=== PATIENT | male | born 1955 | race Caucasian/White ===

== ENCOUNTER 2025-06-27 05:15 | Emergency (ER) | payer OTHER, SELFPAY ==
--- NOTE | ~2025-06-27 | XR_ITS ---
CLINICAL HISTORY: fall, pain Exam: Lumbar spine three views Comparison: None Findings: 5 [id number] lumbar-type vertebral bodies. Lumbar spine alignment is normal. Anterior wedging compression deformity of the T12 with 30% vertebral height loss, intact posterior cortex, age indeterminate. No acute fracture of the lumbar spine. L4-5, L5-S1 endplate sclerotic changes, osteophytes, moderate to severe disc height loss and facet arthrosis. Unremarkable soft tissue. Clustered subcentimeter mineral densities in the medial right upper quadrant abdomen overlying colon. Impression: 1. T12 anterior wedging compression fracture, age indeterminate. 2. Lower lumbar spine degenerative spondylosis. 3. Cholelithiasis versus bowel contents. This document has been electronically signed by: Sangeeta Jaquez MD on 06/27/2025 08:29:58
--- NOTE | ~2025-06-27 | CT_ITS ---
EXAMINATION: CT HEAD WITHOUT IV CONTRAST HISTORY: Fall. TECHNIQUE: Unenhanced helical CT of the head was performed per standard departmental protocol. Coronal and sagittal reformats of the head were also evaluated. One or more of the following techniques was used for dose reduction: Automated exposure control, adjustment of the mA and/or kV according to patient size, use of iterative reconstruction technique. DLP: 855 mGy-cm COMPARISON: There are no prior studies available for comparison. FINDINGS: BRAIN: There is mild prominence of the ventricular system and cortical sulci, consistent with atrophy. Michel/white differentiation is normal. There is no mass effect or midline shift. No intra- or extra-axial fluid collections are identified. SINUSES: The visualized paranasal sinuses are clear. The mastoid air cells and middle ear cavities are well pneumatized. ORBITS: The visualized orbits are unremarkable. BONES/SOFT TISSUES: The extracranial soft tissues are unremarkable. The calvarium is intact. No suspicious lytic or sclerotic lesions. CT/CT head/brain wo IV con IMPRESSION: No evidence of intracranial hemorrhage. Electronically signed by: Gustabo Adam MD 06/27/2025 10:23 AM LIVE
--- NOTE | ~2025-06-27 | CT_ITS ---
EXAMINATION: CT CERVICAL SPINE WITHOUT CONTRAST CLINICAL INFORMATION: Trauma, fall COMPARISON: None available. TECHNIQUE: Axial imaging was performed from the base of the skull through T2 without IV contrast. Coronal and sagittal reformatted images were generated from the original axial data set. ALARA: The examination used one or more of the following radiation dose reduction techniques: Automated exposure control, iterative reconstruction, and/or adjustment of mA and/or KV. FINDINGS: There is reversal cervical lordosis. C2-C3: Disc spaces preserved. There are facet osteophytes. There is a nonaggressive appearing geographic lucency in the base of the spinous process with sclerotic margins. C3-C4: Disc spaces preserved. There are facet osteophytes C4-C5: There is mild disc space narrowing with endplate osteophytes. There are facet osteophytes. C5-C6: There is grade 1 retrolisthesis. There is moderate to severe loss of disc height. There are uncovertebral and facet osteophytes likely with foraminal narrowing. Right central disc osteophyte complex moderately narrows the spinal canal and subarticular zone C6-7: There is moderate loss disc height with degenerative endplate changes and endplate osteophytes. Facet osteophytes narrow the left greater than right neural foramina. Minimal facet osteophytes are present. C7-T1: There is minimal disc space narrowing and facet osteophytes, greater on the left. CT/CT cervical spine wo IV con IMPRESSION: No acute fracture. 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 Electronically signed by: Dom Contreras MD 06/27/2025 10:25 AM EST
--- NOTE | ~2025-06-27 | CT_ITS ---
EXAMINATION: CT LUMBAR SPINE WITHOUT CONTRAST TECHNIQUE: Axial imaging was performed from mid T11 through the lower sacrum coccygeal region without IV contrast. Coronal and sagittal reformatted images were generated from the original axial data set. ALARA: The examination used one or more of the following radiation dose reduction techniques: Automated exposure control, iterative reconstruction, and/or adjustment of mA and/or kV. INDICATION: Trauma, fall PRIOR: None FINDINGS: Multifocal atherosclerotic ossifications are present. Cluster of coarse calcifications are evident in the soft tissues anterior to IVC in the portacaval region. Soft tissues are unremarkable otherwise. There are 5 [id number] lumbar segments. There is a superior endplate fracture of T12 with approximately 30% loss of height. Additionally, fracture line extends from the anterior superior corner T12 to the inferior endplate of T12 There is lucency through the posterior superior left sacrum with partial bridging bone suggesting subacute fracture (sagittal image 20, axial CT #27 image 106). T12-L1: There is mild loss disc height and minimal facet osteophytes. L1-L2: Facet sclerosis and osteophytes are present. L2-L3: Facet sclerosis and osteophyte is present L3-L4: Facet sclerosis and osteophytes are present L4-L5: There is moderate disc space narrowing with vacuum phenomena and endplate sclerosis L5-S1: There is minimal grade 1 retrolisthesis with severe disc space narrowing and degenerative endplate changes. There is a bridging anterior osteophyte. There is facet sclerosis and osteophytes. CT/CT lumbar spine wo IV con IMPRESSION: Suspected acute T12 fracture with 30% loss of height. Suspect a subacute fracture of the superior left sacrum.. Degenerative disc disease and facet osteoarthritis is most pronounced at L4-5 and L5-S1. Electronically signed by: Dom Contreras MD 06/27/2025 10:35 AM EST
[2025-06-27 05:19] VITALS: BP 197/83; PULSE 68; RESP 20; TEMP 36.3; O2SAT 94; BMI 31.7
--- NOTE | 2025-06-27 05:43 | PC.NURSE ---
pt reports drinking alcohol Thursday night at home with family and he tripped on his walker causing him to fall forward landing on his belly. Pt back began to hurt Thursday with no relief. pt rates pain 02/12. respirations even and unlabored. family at bedside.
--- OUTSIDE RECORDS SUMMARY | 2025-06-27 06:28 | XMS_ITS | Data Portability ---
Author Organization [facility], Main Office Address [address] [place] [address] Care Team Providers Care Ruching Machine Operator Name Role Phone [facility] OTHER WHIT SMITH Primary Care Provider Assessment Encounter Date Assessment Date Assessment LastModified by Organization Details LastModified Time 08/05/2024 08/05/2024 Labs 08/01: Na 131-K 4.5-Bun 27-Cr 1.0-wbc 4.4-hgb 10.3-hct 31.7-plt 279 Not available 08/07/2024 19:14:51 08/08/2024 08/08/2024 Labs 08/01: Na 131-K 4.5-Bun 27-Cr 1.0-wbc 4.4-hgb 10.3-hct 31.7-plt 279 [email or web address] Not available 08/08/2024 14:29:04 08/09/2024 08/09/2024 Labs 08/01: Na 131-K 4.5-Bun 27-Cr 1.0-wbc 4.4-hgb 10.3-hct 31.7-plt 279 [email or web address] Not available 08/20/2024 17:53:17 08/17/2024 08/17/2024 Labs 08/01: Na 131-K 4.5-Bun 27-Cr 1.0-wbc 4.4-hgb 10.3-hct 31.7-plt 279 Labs : Na 131-K 4.2-Bun 14-r0.7-wbc8.1- hgb 11.5-hct25.6-pl t 185 Not available 08/17/2024 20:52:12 08/25/2024 08/25/2024 45 minutes spent on coordination of discharge [email or web address] Not available 08/25/2024 09:46:24 Plan of Treatment Reminders Order Date Submit Date Provider Last Modified By Organization Details Last Modified Time Details Appointments None record ed. Lab None record ed. Referral None record ed. Procedures None record ed. Surgeries None record ed. Imaging None record ed. Medication Orders None record ed. Patient TargetsNo targets recorded. Patient InstructionsNo instructions recorded. Reason for Referral None Reported. Problems Name Problem SNOMED Code Status Onset Date Resolution Date Notes Provider Name and Address Organization Details Recorded Time Atherosc lerosis of coronary artery without angina pectoris 32239081376 4103 Completed 202408/07/2024 GIANNA LOOMIS [address] [facility], [address], [place], [address] , [facility] 5 19:16:03 [facility] hyperten viviana 25465763 Active 2024 Not Available [facility] 5 07:47:45 Hyperlip idemia 93908386 Active 2024 Not Available [facility] 07:47:46 Peripher al vascular disease 359257071 Active 2024 Not Available [facility] 5 07:48:17 Acquired absence of organ 702978131 Completed 202408/07/2024 GIANNA LOOMIS [address] [facility], [address], [place], [address] , [facility] 5 19:16:03 Benign prostati c hyperpla morris 893848080 Active 2024 Not Available [facility] 07:49:35 Chronic osteomye litis 33301102 Active 2024 Not Available [facility] 07:50:16 COVID-19 170266684 Active 2024 positive 08/01 Not Available [facility] 07:52:58 Amputati on educatio n Completed 202408/07/2024 GIANNA LOOMIS [address] [facility], [address], [place], [address] , [facility] 5 19:16:03 Muscle weakness 70484653 Completed 202408/07/2024 GIANNA LOOMIS [address] [facility], [address], [place], [address] , [facility] 5 19:16:03 Unsteady when standing 360942500 Completed 202408/07/2024 GIANNA LOOMIS [address] [facility], [address], [place], [address] , [facility] 5 19:16:03 Difficul ty walking 134634512 Completed 202408/07/2024 GIANNA LOOMIS [address] [facility], [address], [place], [address] , [facility] 5 19:16:03 Harmful pattern of use of alcohol 63377625 Active 2024 Not Available [facility] 5 13:42:35 Cardiac arrest 525355629 Active 2024 Not Available [facility] 13:43:50 Hyponatr emia 67541216 Active 2024 Roselyn Rodriguez MD [address] [facility], [address], [place], [address] , [facility] 5 18:02:19 Problem Notes None recorded. Medical Equipment None Reported. Allergies No known drug allergies Medications Name Sig Start Date Stop Date Status Note LastModified by Organization Details LastModified Time Augmentin 875 mg-125 mg tablet Give 1 tablet by mouth three times a day for Routine until 5 19:24 09/01 completed Not Available Not Available Not Available atorvastati n 20 mg tablet Give 20 mg by mouth one time a day for cholester ol 2024 active Not Available Not Available Not Avai lable tamsulosin 0.4 mg capsule Give 2 capsule by mouth at bedtime for routine Do not crush/james w or open capsule. Take 30 minutes after the same meal each day. May cause dizziness . 2024 active Not Available Not Available Not Avai lable lisinopril 10 mg tablet Give 10 mg by mouth one time a day for Hypertens ion hold if SBP <110, update CIGAR PATCHER if held frequentl y 2024 active Not Available Not Available Not Avai lable Laxative (sennosides ) 8.6 mg tablet Give 1 tablet by mouth every 24 hours as needed for Constipat ion AND Give 1 tablet by mouth two times a day for constipat ion 2024 active Not Available Not Available Not Avai lable finasteride 5 mg tablet Give 5 mg by mouth one time a day for routine 2024 active Not Available Not Available Not Avai lable Stulex 100 mg tablet Give 100 mg by mouth two times a day for Constipat ion 2024 active Not Available Not Available Not Avai lable sodium phosphates 19 gram-7 gram/197 mL enema Insert 1 unit rectally every 24 hours as needed for Constipat ion Use only if Bisacodyl Supposito ry is ineffecti ve 2024 active Not Available Not Available Not Avai lable lactulose 10 gram/15 mL (15 mL) oral solution Give 30 ml by mouth one time only for constipat ion for 1 Day 08/13 completed Not Available Not Available Not Available aspirin 81 mg capsule Give 81 mg by mouth one time a day for routine 2024 active Not Available Not Available Not Avai lable OneLAX Bisacodyl 10 mg rectal suppository Insert 1 supposito ry rectally every 24 hours as needed for constipat ion Use if Senna is Ineffecti ve 2024 active Not Available Not Available Not Avai lable 2-in-1 Laxative 8.6 mg-50 mg tablet Give 17.2 mg by mouth one time only for constipat ion for 1 Day 08/10 completed Not Available Not Available Not Available OneLAX Magnesium Citrate oral solution Give 0.5 vial by mouth one time only for constipat ion for 1 Day ONLY ADMINISTE R IF POOR RESULTS FROM [facility] 08/09 completed Not Available Not Available Not Available Vitals Date Recorded Heart rate Respiratory rate Body temperature Oxygen saturation Systolic And Diastolic Provider Name and Address Organization Details Last Updated DateTime 5 60 /min 18 /min 97.9 [degF] 97 % 115/61 mm[Hg] GIANNA LOOMIS [address] [facility], [address], [place], [address], [facility] 5 19:05:27 Date Recorded Heart rate Respiratory rate Body temperature Oxygen saturation Systolic And Diastolic Provider Name and Address Organization Details Last Updated DateTime 5 53 /min 18 /min 97.7 [degF] 94 % 136/67 mm[Hg] KATHERINE GROVER NP [address] [facility], [address], [place], [address], [facility] 5 14:28:50 Date Recorded Body height Body mass index (BMI) Body weight Heart rate Respiratory rate Body temperature Oxygen saturation Systolic And Diastolic Provider Name and Address Organization Details Last Updated DateTime 5 188.98 cm 26.1 kg/m2 32245.8 7 g 89 /min 22 /min 98.1 [degF] 99 % 145/68 mm[Hg] Roselyn Rodriguez MD [address] [facility], [address], [place], [address], [facility] 5 19:10:09 Date Recorded Body height Heart rate Respiratory rate Body temperature Oxygen saturation Systolic And Diastolic Provider Name and Address Organization Details Last Updated DateTime 5 188.98 cm 56 /min 18 /min 98 [degF] 96 % 120/61 mm[Hg] GIANNA LOOMIS [address] [facility], [address], [place], [address], [facility] 5 19:52:37 Date Recorded Body height Heart rate Respiratory rate Body temperature Oxygen saturation Systolic And Diastolic Provider Name and Address Organization Details Last Updated DateTime 5 188.98 cm 57 /min 18 /min 97.8 [degF] 99 % 129/57 mm[Hg] KATHERINE GROVER NP [address] [facility], [address], [place], [address], [facility] 09:18:56 Social History Question Answer Notes LastModified by Organizat ion Details LastModified Time Tobacco Smoking Status Former Smoker quit 2022 Roselyn Rodriguez MD [address] [place] [address], [address], [place], [address], [facility] 08/09/2024 19:19:48 Do You Have An Advance Directive? Yes Information not available 08/09/2024 What Is Your Code Status? DNR/DNI [id number] Information not available 08/08/2024 Where Do You Live? SingleLevelHouse Alone, With 3 Steps To Enter. Information not available 08/09/2024 Legal Guardian? No Informati on not available 08/09/2024 Do You Have A Medical Power Of Ticketing Clerk? Yes Information not available 08/09/2024 What Was The Date Of Your Most Recent Tobacco Screening? 08/09/2024 Information not available 08/09/2024 Do You Have An Out Of Hospital DNR? Yes [email or web address] Information not available 08/08/2024 Have You Ever Been Counseled For Unhealthy Alcohol Use? Yes Information not available 08/09/2024 What Is Your Relationship Status? Information not available 08/09/2024 How Much Tobacco Do You Smoke? No Information not available 08/09/2024 Has Tobacco Cessation Counseling Been Provided? No N/a As Pt No Longer Smokes Information not available 08/09/2024 How Many Days In The Past Year Have You Consumed 5 Or More Drinks? 340 Information not available 08/09/2024 Sex: Unknown Functional Status Question Answer Note LastModified by Organizat ion Details LastModified Time How many times per week do you consume alcohol? 5-7 times per week 6-8 beers/day, not interested in quitting. Information not available 08/20/2024 Do you or have you ever used any other forms of tobacco or nicotine? No Information not available 08/09/2024 What is your level of alcohol consumption? Heavy Information not available 08/09/2024 Mental Status None recorded. Family History Nothing Reported Notes:n/c Medical History No medical history recorded. Past Encounters Encounter ID Performer Location Encounter Start Date Encounter Closed Date Diagnosis/Indication Diagnosis SNOMED-CT Code Diagnosis ICD10 Code Diagnosis IMO Codes Diagnosis Note [id number] [place] [address] 08/05/2024 10:46:13 08/12/2024 16:04:46 COVID-19 584240351 U07.1 Patient was mainly asymptomat icAsymptom atic, previous myalgia and fatigue has resolved per patientHe did not receive any steroids due to hypoxemia, not sure how lowcont support therapy. Peripheral vascular disease 403449487 I73.9 with hx of necrosis of toes and osteomyeli tisrecent transmetat arsal amputation of right foot 07/20/24was wearing a wound vac/ eval by vascular/n o sx of infection/ wound vac removed. Chronic osteomyelitis 40 574288 M86.60 continue lipitor ( statin use associated with decrease re-occurre nce)cont asa dailycont augmentin 875 mg TID until 08/31/24sta rted probiotic BIDcont Vit C Benign pro static hyperplasia 641968792 N40.[address] due to retentionw ill need voiding trial, dubon has dulce in place greater than 2 weeks, he should have had voiding trial done prior to last admission to hosp.cont flomax and proscar daily Hyperlipidemia 60021944 E78.5 cont atorvastat inmonitor labs prn Essential hypertension 26772006 I10 cont lisinopril monitor BP Constipation 38757676 K5 9.00 He has been refusing miralaxagr ee to taking a stool softenerco nt on senna and colaceincr ease fluid hydration [id number] [place] [address] 08/08/2024 12:14:43 08/09/2024 12:31:25 COVID-19 514835855 U07.1 Mild sx., now resolving. Tested pos. in hosp.Jaocby nues in isolation. Feeling better, less cough and congestion .Monitor Peripheral vascular disease 821692432 I73.9 with hx of necrosis of toes and osteomyeli tisrecent transmetat arsal amputation of right foot 07/20/24.Fo llowed by Vascular, NS wash and DCD daily to [facility] site.Jacoby nues on Augmentin thru 08/31.CBC, BMP q Thurs while on antibiotic sFollow up with Vascular as sched. Chronic osteomyelitis 40 651925 M86.60 continue lipitor ( statin use associated with decrease re-occurre nce)cont asa dailycont augmentin 875 mg TID until 08/31/24sta rted probiotic BIDcont Vit CAdding weekly labs as above. Benign pro static hyperplasia 297673307 N40.[address] due to retentionw ill need voiding trial, dubon has been in place greater than 2 weeks, he should have had voiding trial done prior to last admission to hosp.Plan -cont flomax and proscar dailyRemov e dubon 08/11, PVR q shift, cath if >350 ml.Pt wants to make sure bowels are moving prior to removing cath. Hyperlipidemia 18386249 E78.5 cont atorvastat inmonitor labs prn Essential hypertension 84169848 I10 cont lisinopril monitor BP Constipation 03773006 K5 9.00 Reported to be refusing miralax earlier.Cu rrently on colace.Pt. reports no BM in 10 days.No results with supp. Plan -Fleets today, 1/2 bottle mag citrate if poor results.En c. use of daily miralaxAdd senna-plus 2 po dailyMaint ain hydrationE ncourage fiber and activityMo nitor and continue to adjust tx. Hyponatremia 76732575 E8 7.1 ? Newer issueCurre nt levels 131 -> 129MAR reviewed, not on obvious meds to contribute to low NaRepeat q dayCo nsider fluid restrictio n [id number] Roselyn Rodriguez MD [facility] [address] [place] [address] 08/09/2024 19:03:23 08/22/2024 12:40:59 COVID-19 124461227 U07.1 Tested + 08/01Now considered recovered. Continues with mild cough, tx sxatically .Monitor for sequelae. Hyponatremia 16892302 E8 7.1 On no meds that should cause this.Initi ally would have attributed to EtOH ingestion, but that should have resolved by now.Remain s mild.No FR for now.Monito r labs.Consi surinder renal consult. Constipation 51704402 K5 9.89 No actual constipati on.He has had results with fleets and has soft stool in vault.I reassured him that he could push if needed.Con tinue bowel meds as ordered.Mo nitor bowel function. Peripheral vascular disease 659999979 I73.89 Continue atorvastat in 20 mg qd and ASA 81 mg Vd.F/U with vascualr as planned. Chronic osteomyelitis 40 245061 M86.60 Z89.421 Z89.411 Continue augmentin 875 mg TID until 08/31/24Con tinue probiotic BIDContinu e Vit C 250 mg qd to help with healing.Mo nitor labs weekly.F/U with surgeon and ID as planned. Benign pro static hyperplasia 337383108 N40.0 With retention inpt.Pt refused voiding trial due to constipat ion .Jacoby nue tamsulosin 0.4 mg vd and finasterid e 5 mg qd.Will try voiding trial again on 08/11.Uro consult prn. Essential hypertension 28549076 I10 With 2 borderline SBPs since here, but generally good.Jacoby nue lisinopril 10 mg qdMonitor BP and labs. [id number] RONY ARMAS, INVOICE CLERK [facility] [address] [place] [address] 08/17/2024 13:38:21 08/18/2024 14:02:48 COVID-19 486302397 U07.1 presumed resolvedhe has been without sxcont support therapy prn Peripheral vascular disease 445518114 I73.9 with hx of necrosis of toes and osteomyeli tisrecent transmetat arsal amputation of right foot 07/20/24was wearing a wound vac/ eval by vascular/n o sx of infection/ wound vac removed.He had f/u with vasc on 08/16 awaiting cnsult report, nursing ask to obtain. Chronic osteomyelitis 40 236496 M86.60 continue lipitor ( statin use associated with decrease re-occurre nce)cont asa dailycont augmentin 875 mg TID until 08/31/24con tinue probiotic BIDcont Vit C Benign pro static hyperplasia 575371459 N40.0 dubon removed, voiding but PVR >400flomax increased to 0.8 mg qdreplace dubon for 3 consecutiv e pvr requiring str cath Hyperlipidemia 79652747 E78.5 cont atorvastat inmonitor labs prn Essential hypertension 59166454 I10 cont lisinopril monitor BP Constipation 25658669 K5 9.00 see hpirefusin g stool softener [id number] KATHERINE GROVER, CIGAR PATCHER [facility] [address] [place] [address] 08/25/2024 09:07:20 08/26/2024 11:18:20 COVID-19 373174225 U07.1 Tested + 08/01Now considered recovered. Monitor for sequelae. Hyponatremia 58471254 E8 7.1 On no meds that should cause this.Initi ally would have attributed to EtOH ingestion, but that should have resolved by now.Remain s mild.No FR for now.Monito r labs as outpt.Cons ider renal consult. Constipation 82852030 K5 9.89 No actual constipati on.Continu e laxativesM onitor bowel function as outpt. Chronic osteomyelitis 40 544078 M86.60 Z89.421 Z89.411 Continue augmentin 875 mg TID until 08/31/24Con tinue probiotic BIDContinu e Vit C 250 mg qd to help with healing.Mo nitor labs weekly.F/U with surgeon and ID as planned. Peripheral vascular disease 853936502 I73.89 Continue atorvastat in 20 mg qd and ASA 81 mg Vd.F/U with vascular as planned. Benign pro static hyperplasia 247600599 N40.0 Failed voiding trialsTams ulosin increased to 0.8 mg qd last week, continues on finasterid e 5 mg qd.Dubon removed yesterday, PVRs x 3 -> 2 readings ok, 1 elevated, cathed for 400 ml urine.S/S retention discussed with pt., educated he must notify his PCP or VNA nurse if having trouble voiding, having reduced output, or is noticing bladder distention or sx. of full bladder.Ur o consult prn. Essential hypertension 15794962 I10 VSSContinu e lisinopril 10 mg qdMonitor BP and labs as outpt. Hyperlipidemia 71172412 E78.5 cont atorvastat in 20 mg qdmonitor labs prn Health Concerns Section Related Observation LastModified by Organization Detai ls LastModified Time None Recorded Concern Status LastModified by Organization Details LastModified Time None Recorded Advance Directives Directive Y: Payers Insurance Date Sequence Insurance Name Policy Number Policy Lewis Covered Member ID Lewis Member ID Guarantor Name 08/25/[address] [place] [address] [id number] Piotr Dubon [id number] Piotr Dubon Notes Date Note Type Note Provider Name and Address Organization Details Recorded Time 08/05/2024 text/html ROS as noted in the HPI This is a 69-year-old male patient with PMH of coronary artery disease complicated by previous cardiac arrest, hypertension, hyperlipidemia, and a necrotic right foot infection resulting in sepsis and amputation of all 5 digits on the right foot, admitted to [facility] after acute care stay, he presented to [facility] from snf with generalized weakness, he was dx with covid and tx conservatively. Patient was cleared to returned to SNF but he refused and asked to be placed in a different SNF. Patient is seen for initial intake for continued care and rehab. RONY ARMAS, GIANNA [address] [facility], [address], [place], [address], [facility] 08/09/2024 17:58:43 08/08/2024 text/html ROS as noted in the HPI Joshua is seen today for an acute visit. He is a 69-year-old male, admitted to [facility] for continued care and rehab after a brief hosp. due to COVID infection. He was sent to [facility] ER 08/01 from another SNF due to fever, weakness, and headache. Appears tx. was supportive, and he was cleared to return to SNF. He refused transfer back to his previous SNF and asked to be placed at a different facility, so he is here. Upon exam, Joshua is in bed, feels poor. Specifically he is complaining of constipation, hasn't had a substantial BM in 10 days and he is very uncomfortable. He is also requesting a regular, not heart healthy diet.MAR reviewed, currently on daily miralax and colace. VSS.Labs 08/05 stable except Na 129. Prior labs show low Na as well as low D and low B 12.Pt. unaware of any hx. of hypokalemia. Per nsg., he has had 2 lrg. BMs recently. PMH of coronary artery disease complicated by previous cardiac arrest, hypertension, hyperlipidemia, and a necrotic right foot infection resulting in sepsis and amputation of all 5 digits on the right foot KATHERINE GROVER NP [address] [facility], [address], [place], [address], [facility] 08/08/2024 15:05:29 08/09/2024 text/html This is a complicated 69 yo man who is here for rehab after an acute hospitalization for Covid. He hadoriginally been hospitalized 07/15-07/28 for a right foot infection with osteomyelitis an sepsis, now s/p a right TMA, details as below:Group A streptococcus bacteremiaSepsis due to Right foot infection(L08.9): fever + leukocytosisNecrosis of toe(I96)withosteomyeli tis s/p Rt foot TMA by Dr Marcano 07/20/24Peripheral vascular disease Status post left femoropopliteal bypass graft and left transmetatarsal amputation CAD in [place] artery(I25.10):H/o PAD and multiple vascular procedures including L fem-pop bypass(2015),R fem-pop bypass(2015), L TMA (2015), debridement L foot (2019) R2 amputation (2023).Chronic right foot wound presented to ER with a chief complaint of worsening wound found to have diabetic R foot infection with necrosis.Labs: Leukocytosis, ESR 83 and CRP 49CTA of lower extremity was done that showed patent graftS/p R1, R# ray amputation POD 4.07/15: 1/2 Blood cx: +Streptococcus pyogenes07/16: Ortissue cultures are growing Proteus mirabilis and streptococcus pyogenes07/17: Repeat blood cultures -ve for 48 hr07/18:ECHo: EF is 55 to 60%. No evidence of vegetation.07/20- s/p Rt TMA, f/u pathology reveals acute osteomyelitic changesID consult reviewedPer ID-StartAugmentin 875mg PO TID (to avoid line placement) - till 08/31 treating for residual osteo.-Should have CBC with diff, CMP, ESR, CRP in about 2 weeks and every 2-3 weeks after this.- ID will arrange outpatient follow up- Follow up with PCP in 1-2 weeks- Follow up with vascular surgeryPer Wound care/vascular-Continue ASA, Atorvastatin*RLE NWB x 6 weeks post R TMSeen by vascular on 07/27/[address] to the right TMA. Clear adhesive and sponge taken down. Healthy pink granulation tissue to the wound base with healthy granulation tissue over etelvina. Skin prep wipes used around open end of TMA with skin prep along the stapled incision. Use clear adhesive around incision and wound edge medially. Cut black sponge to fit medial open TMA, pack into wound. cover all exposed skin surrounding with clear adhesive. Do not cover etelvina along the incision with clear adhesive. Use black sponge cut to fit along incision to bridge with medial open area and cover with clear adhesive. Cut small opening for tessie pad and attach to vac. Good seal at -125mmHg without leak alarm noted at end of vac change. This is to be changed every Thu//Thu. Next change due Thursday, 07/29. He was d/c'd to [facility].Transferred back to [facility] on 08/01 because of low grade temp and not feeling himself .Found to be + for Covid. He has a dubon in place for urinary retention.He was txed sxatically and not given steroids or antivirals as he had no hypoxia.He wastransferred here for further rehab on 08/04. Tonight he is in bed awake. He tells me his biggest problem is not being able to poop . I tell him the nursing notes say he did poop. He says there is a hard piece there that won't come out. He also tells me he is afraid to push too hard because of the etelvina in his foot. I reassure him that straining should not affect the etelvina in his foot. He tells me the surgeon had said it would when he had previous surgeries. He had a KUB done which showed no sig constipation and nursing says he has been having BMs. His PMH includes HTN, CAD with hx of VF arrest/non-ST elevation AL s/p PCI to LAD in 2016, PVD s/p multiple revascularization attempts, osteomyelitis s/p L TMA in 2015 and R TMA 07/2024, HLD, AUD-not interested in quitting, and hx of cigarette smoking. Roselyn Rodriguez MD [address] [facility], [address], [place], [address], [facility] 08/20/2024 18:16:58 08/17/2024 text/html ROS as noted in the HPI This is a 69 yr old male patient seen for acute rounding visit. Patient is here for rehab after acute care stay for covid, previously at another SNF s/p Rt TMA with refusal to returned to previous snf. He arrived from hospital with dubon catheter in place due to urinary retention;he refused voiding trial; patient was on a bowel regimen, He initially stated that he was going to refuse stool softener and miralax but he agreed to colace. He has been refusing senna, stating he is not taking it, he has a problem with bowel movement. Now he is reporting that he has not had a BM in ten days and FC is causing constipation. 08/15: he requested FC to be removed 08/16:dubon removed, pt spontaneously voided with PVR > than 400, requiring additional straight cath. GIANNA LOOMIS [address] [facility], [address], [place], [address], [facility] 08/17/2024 20:52:36 08/25/2024 text/html ROS as noted in the HPI Joshua is seen today for discharge.He is going home today with support of services. He is a 69 yo man who was admitted to [facility] for continued care and rehab after an acute hospitalization for Covid. He hadoriginally been hospitalized 07/15-07/28 for a right foot infection with osteomyelitis and sepsis, now s/p a right TMA, details as below:Group A streptococcus bacteremiaSepsis due to Right foot infection(L08.9): fever + leukocytosisNecrosis of toe(I96)withosteomyeli tis s/p Rt foot TMA by Dr Marcano 07/20/24Peripheral vascular disease Status post left femoropopliteal bypass graft and left transmetatarsal amputation CAD in [place] artery(I25.10):H/o PAD and multiple vascular procedures including L fem-pop bypass(2015),R fem-pop bypass(2015), L TMA (2015), debridement L foot (2019) R2 amputation (2023).Chronic right foot wound presented to ER with a chief complaint of worsening wound found to have diabetic R foot infection with necrosis.Labs: Leukocytosis, ESR 83 and CRP 49CTA of lower extremity was done that showed patent graftS/p R1, R# ray amputation POD 4.07/15: 1/ Blood cx: +Streptococcus pyogenes07/16: Ortissue cultures are growing Proteus mirabilis and streptococcus pyogenes07/17: Repeat blood cultures -ve for 48 hr07/18:ECHo: EF is 55 to 60%. No evidence of vegetation.07/20- s/p Rt TMA, f/u pathology reveals acute osteomyelitic changesID consult reviewedPer ID-StartAugmentin 875mg PO TID (to avoid line placement) - till 08/31 treating for residual osteo.-Should have CBC with diff, CMP, ESR, CRP in about 2 weeks and every 2-3 weeks after this.- ID will arrange outpatient follow up- Follow up with PCP in 1-2 weeks- Follow up with vascular surgeryPer Wound care/vascular-Continue ASA, Atorvastatin*RLE NWB x 6 weeks post R TMSeen by vascular on 07/27/[address] to the right TMA. Clear adhesive and sponge taken down. Healthy pink granulation tissue to the wound base with healthy granulation tissue over etelvina. Skin prep wipes used around open end of TMA with skin prep along the stapled incision. Use clear adhesive around incision and wound edge medially. Cut black sponge to fit medial open TMA, pack into wound. cover all exposed skin surrounding with clear adhesive. Do not cover etelvina along the incision with clear adhesive. Use black sponge cut to fit along incision to bridge with medial open area and cover with clear adhesive. Cut small opening for tessie pad and attach to vac. Good seal at -125mmHg without leak alarm noted at end of vac change. This is to be changed every Thu//Thu. Next change due Thursday, 07/29. He was d/c'd to [facility].Transferred back to [facility] on 08/01 because of low grade temp and not feeling himself .Found to be + for Covid. He has a dubon in place for urinary retention.He was txed sxatically and not given steroids or antivirals as he had no hypoxia.He wastransferred here for further rehab on 08/04. While here, he has worked with rehab, meeting goals for d/c home today.VSSLabs stable. Issues with constipation - laxatives adjusted. KUB done which showed no sig constipation and nursing says he has been having BMs. Last documented BM large on 08/22. Issues with urinary retention - failed voiding trial here, flomax dose increased last week, attempting another voiding trial - dubon removed yesterday, PVRs good x 2, the 3rd PVR this am showed high residual, cathed for 400 mg urine. Pt. verbalized to the nurse he is not going home with a catheter, and if he does he will remove it himself when he gets home. Continues with wound care to right foot, area stable/improving. Continue tx = cleanse open area to right TMA sight with NS, apply skin prep to periphery, Calcium Alginate lightly activated with normal saline to wound bed, apply betadine to superficial ulcers, cover with DCD. Upon exam, Joshua is up in his w/c, alert, NAD. In good spirits, happy to be going home. Denies any complaints today. His PMH includes HTN, CAD with hx of VF arrest/non-ST elevation AL s/p PCI to LAD in 2016, PVD s/p multiple revascularization attempts, osteomyelitis s/p L TMA in 2015 and R TMA 07/2024, HLD, AUD-not interested in quitting, and hx of cigarette smoking. KATHERINE GROVER NP [address] [facility], [address], [place], [address], [facility] 08/25/2024 10:15:25
--- OUTSIDE RECORDS SUMMARY | 2025-06-27 06:28 | XMS_ITS | Clinical Summary ---
Author Organization [address] [facility] Address [address] [place] [address] Phone Care Team Providers Care Consultant Electronics Name Role Phone Tahmina Joe MD Primary Care Provider Social History Tobacco Use Types Packs/Day Years Used Date Smoking Tobacco: Never Assessed Sex and Gender Information Value Date Recorded Sex Assigned at Not on file Legal Sex Male 5:10 PM EST Gender Identity Not on file Sexual Orientation Not on file Plan of Treatment Health Maintenance Due Date Last Done Comments Colorectal Cancer Screening: Colonoscopy 1955 Hepatitis A Vaccines (1 of 2 - Risk 2-dose series) 01/30/1976 Pneumococcal Vaccine: 50+ Years (1 of 1 - PCV) 2007 RSV Immunization Adult Patients (1 - Risk 50-74 years 1-dose series) 2007 Zoster Vaccines (1 of 2) 2007 Depression Screening 07/06/2024 Abdominal Aortic Aneurysm (AAA) Screen 07/30/2024 Falls Risk Assessment 07/30/2024 Hepatitis C Screening 07/30/2024 Social Influencers of Health Screening 07/30/2024 COVID-19 Vaccine (3 - 2024- season) 2025 11/04/2020, 10/06/2020 Influenza Vaccine (#1) 2025 Hypertension/CHF/CAD Annual BMP Blood Test 08/25/2025 08/25/2024, 08/18/2024, 08/11/2024, Additional history exists Cholesterol Screening (Lipid Panel) 07/29/2029 07/29/2024 DTaP,Tdap,and Td Vaccines (3 - Td or Tdap) 02/05/2033 02/05/2023, 02/02/2015 HIB Vaccines Aged Out No longer eligi ble based on patient's age to complete this topic HPV Vaccines Aged Out No longer eligi ble based on patient's age to complete this topic Hepatitis B Vaccines Aged Out No long er eligible based on patient's age to complete this topic IPV Vaccines Aged Out No longer eligi ble based on patient's age to complete this topic MMR Vaccines Aged Out No longer eligi ble based on patient's age to complete this topic Meningococcal ACWY Vaccine Aged Out N o longer eligible based on patient's age to complete this topic Meningococcal B Vaccine Aged Out No l onger eligible based on patient's age to complete this topic RSV Immunization Patients Under 20 months Aged Out No longer eligible based on patient's age to complete this topic Varicella Vaccines Aged Out No longer eligible based on patient's age to complete this topic Procedures Procedure Name Priority Date/Time Associated Diagnosis Comments BASIC METABOLIC PANEL Routine 08/25/2024 5:19 AM EST Hyperlipidemia, unspecified Peripheral vascular disease, unspecified (CMS/HCC) LIPID PANEL WITH REFLEX TO DIRECT LDL Routine 07/29/2024 6:08 AM EST Vitamin D deficiency, unspecified Gangrene, not elsewhere classified (CMS/HCC) Hyperlipidemia, unspecified Sepsis, unspecified organism (CMS/HCC) Local infection of the skin and subcutaneous tissue, unspecified from Last 3 Months or Most Recently Relevant to Health Maintenance Results * (ABNORMAL) Basic metabolic panel (08/25/2024 5:19 AM EST) Sodium 137 133 - 145 mmol/L LAB CHEMISTRY METHOD 08/25/2024 11:12 AM [facility] Potassium 4.7 3.5 - 5.5 mmol/L LAB CHEMISTRY METHOD 08/25/2024 11:12 AM [facility] Chloride 102 96 - 110 mmol/L LAB CHEMISTRY METHOD 08/25/2024 11:12 AM [facility] CO2 24 21 - 32 mmol/L LAB CHEMISTRY METHOD 08/25/2024 11:12 AM [facility] Anion Gap 11 3 - 11 LAB CHEMISTRY METHOD 08/25/2024 11:12 AM [facility] Glucose 85 70 - 100 mg/dL LAB CHEMISTRY METHOD 08/25/2024 11:12 AM [facility] BUN 15 5 - 25 mg/dL LAB CHEMISTRY METHOD 08/25/2024 11:12 AM [facility] Creatinine 0.69(L) 0.70 - 1.30 mg/dL LAB CHEMISTRY METHOD 08/25/2024 11:12 AM [facility] eGFR 101 >=60 mL/min/1. 73m2 LAB CHEMISTRY METHOD 08/25/2024 11:12 AM [facility] Comment:Calculation based on the Chronic Kidney Disease Epidemiology Collaboration (CKD-EPI) equation refit without adjustment for race. BUN/Creatinine Ratio 21.7 LAB CHEMISTRY METHOD 08/25/2024 11:12 AM [facility] Calcium 8.8 8.5 - 10.5 mg/dL LAB CHEMISTRY METHOD 08/25/2024 11:12 AM [facility] Blood Venous blood specimen / Unknown Venipuncture / Unknown 08/25/2024 5:19 AM EST 08/25/2024 10:32 AM EST us Phil Sands MD LAB BLOOD ORDERABLES Final Resul t [facility] [address] [place] [address], * (ABNORMAL) Lipid panel with reflex to direct LDL (07/29/2024 6:08 AM EST) Cholesterol 160 0 - 200 mg/dL LAB CHEMISTRY METHOD 07/29/2024 12:12 PM [facility] Triglycerides 192(H) 0 - 150 mg/dL LAB CHEMISTRY METHOD 07/29/2024 12:12 PM [facility] HDL 30(L) >=40 mg/dL LAB CHEMISTRY METHOD 07/29/2024 12:12 PM [facility] LDL Calculated 92 0 - 100 mg/dL LAB CHEMISTRY METHOD 07/29/2024 12:12 PM EST [facility] VLDL Cholesterol Tanner 38.4 mg/dL LAB CHEMISTRY METHOD 07/29/2024 12:12 PM EST [facility] Non HDL Chol. (LDL+VLDL) 130 <145 mg/dL LAB CHEMISTRY METHOD 07/29/2024 12:12 PM [facility] Chol/HDL Ratio 5.3(H) 0.0 - 4.4 LAB CHEMISTRY METHOD 07/29/2024 12:12 PM EST [facility] Blood Venous blood specimen / Unknown Venipuncture / Unknown 07/29/2024 6:08 AM EST 07/29/2024 10:03 AM EST aThmina Joe MD LAB BLOOD ORDERABLES Final Resul t [facility]) [facility] [address] [place] [address], from Last 3 Months or Most Recently Relevant to Health Maintenance Insurance MEDICARE [facility] [place] [id number] Care Teams Consultant Electronics Relationship Specialty Start Date End Date Tahmina Joe MD PCP - General Geriatric Medicine 07/29/24
--- OUTSIDE RECORDS SUMMARY | 2025-06-27 06:28 | XMS_ITS | Encounter Summary ---
Author Organization [employer] Address [address] [place] [address] Care Team Providers Care Athletic Team Physician Name Role Phone Tahmina Joe MD Primary Care Provider [phone] Encounter Details Date Type Department Care Team (Late st Contact Info) Description 08/24/[address] [facility] - Main Lab [address] [place] [address] Phil Sands MD [address] [place] [address] [address] [place], [address] Hyperlipidemia, unspecified; Peripheral vascular disease, unspecified (CMS/HCC V24) Social History Tobacco Use Types Packs/Day Years Used Date Smoking Tobacco: Never Assessed Sex and Gender Information Value Date Recorded Sex Assigned at Not on file Legal Sex Male 5:10 PM EST Gender Identity Not on file Sexual Orientation Not on file documented as of this encounter Plan of Treatment Not on file documented as of this encounter Procedures Procedure Name Priority Date/Time Associated Diagnosis Comments COMPLETE BLOOD COUNT Routine 08/25/2024 5:19 AM EST Hyperlipidemia, unspecified Peripheral vascular disease, unspecified (CMS/HCC) BASIC METABOLIC PANEL Routine 08/25/2024 5:19 AM EST Hyperlipidemia, unspecified Peripheral vascular disease, unspecified (CMS/HCC) documented in this encounter Results * (ABNORMAL) Basic metabolic panel (08/25/2024 5:19 AM EST) Sodium 137 133 - 145 mmol/L LAB CHEMISTRY METHOD 08/25/2024 11:12 AM EST [facility] Potassium 4.7 3.5 - 5.5 mmol/L LAB CHEMISTRY METHOD 08/25/2024 11:12 AM [facility] Chloride 102 96 - 110 mmol/L LAB CHEMISTRY METHOD 08/25/2024 11:12 AM [facility] CO2 24 21 - 32 mmol/L LAB CHEMISTRY METHOD 08/25/2024 11:12 AM [facility] Anion Gap 11 3 - 11 LAB CHEMISTRY METHOD 08/25/2024 11:12 AM [facility] Glucose 85 70 - 100 mg/dL LAB CHEMISTRY METHOD 08/25/2024 11:12 AM [facility] BUN 15 5 - 25 mg/dL LAB CHEMISTRY METHOD 08/25/2024 11:12 AM [facility] Creatinine 0.69(L) 0.70 - 1.30 mg/dL LAB CHEMISTRY METHOD 08/25/2024 11:12 AM [facility] eGFR 101 >=60 mL/min/1. 73m2 LAB CHEMISTRY METHOD 08/25/2024 11:12 AM [facility] Comment:Calculation based on the Chronic Kidney Disease Epidemiology Collaboration (CKD-EPI) equation refit without adjustment for race. BUN/Creatinine Ratio 21.7 LAB CHEMISTRY METHOD 08/25/2024 11:12 AM [facility] Calcium 8.8 8.5 - 10.5 mg/dL LAB CHEMISTRY METHOD 08/25/2024 11:12 AM [facility] Blood Venous blood specimen / Unknown Venipuncture / Unknown 08/25/2024 5:19 AM EST 08/25/2024 10:32 AM EST us Phil Sands MD LAB BLOOD ORDERABLES Final Resul t [facility] [address] [place] [address], [place] [phone] * (ABNORMAL) Complete blood count (08/25/2024 5:19 AM EST) WBC 7.8 4.8 - 10.8 K/mcL LAB HEMETOLOGY METHOD 08/25/2024 10:58 AM [facility] RBC 3.70(L) 4.50 - 5.50 [facility] HEMETOLOGY METHOD 08/25/2024 10:58 AM [facility] Hemoglobin 10.9(L) 13.5 - 17.5 g/dL LAB HEMETOLOGY METHOD 08/25/2024 10:58 AM [facility] Hematocrit 34.7(L) 42.0 - 54.0 % LAB HEMETOLOGY METHOD 08/25/2024 10:58 AM [facility] MCV 93.5 79.0 - 98.0 FL LAB HEMETOLOGY METHOD 08/25/2024 10:58 AM [facility] MCH 29.4 27.0 - 32.0 pcg LAB HEMETOLOGY METHOD 08/25/2024 10:58 AM [facility] MCHC 31.4(L) 32.0 - 37.0 g/dL LAB HEMETOLOGY METHOD 08/25/2024 10:58 AM [facility] RDW 14.6 11.0 - 15.0 % LAB HEMETOLOGY METHOD 08/25/2024 10:58 AM [facility] Platelets 269 130 - 400 K[facility] LAB HEMETOLOGY METHOD 08/25/2024 10:58 AM [facility] MPV 11.0 7.0 - 11.0 FL LAB HEMETOLOGY METHOD 08/25/2024 10:58 AM [facility] NRBC 0.0 <1.0 % LAB HEMETOLOGY METHOD 08/25/2024 10:58 AM [facility] NRBC Absolute 0.00 <0.10 [facility] LAB HEMETOLOGY METHOD 08/25/2024 10:58 AM EST [facility] Blood Venous blood specimen / Unknown Venipuncture / Unknown 08/25/2024 5:19 AM EST 08/25/2024 10:32 AM EST us Phil Sands MD LAB BLOOD ORDERABLES Final Resul t [facility] ([facility]) [facility] [address] [place] [address], documented in this encounter Visit Diagnoses Diagnosis Hyperlipidemia, unspecified Peripheral vascular disease, unspecified (CMS/HCC V24) Peripheral vascular disease, unspecified documented in this encounter Care Teams Athletic Team Physician Relationship Specialty Start Date End Date Tahmina Joe MD PCP - General Geriatric Medicine 07/29/24 documented as of this encounter
--- OUTSIDE RECORDS SUMMARY | 2025-06-27 06:28 | XMS_ITS | Encounter Summary ---
Author Organization [facility] Address [address] [place] [address] Care Team Providers Care Wound Care Specialist Name Role Phone Tahmina Joe MD Primary Care Provider [phone] Encounter Details Date Type Department Care Team (Late st Contact Info) Description 08/31/[address] [facility] Lab [address] [facility] [place] [address] Phil Sands MD [address] [place] [address] [address] [place], [address] Hyperlipidemia, unspecified; Peripheral vascular disease, unspecified [...] on file documented as of this encounter Visit Diagnoses Diagnosis Hyperlipidemia, unspecified Peripheral vascular disease, unspecified (CMS/HCC V24) Peripheral vascular disease, unspecified documented in this encounter Care Teams Wound Care Specialist Relationship Specialty Start Date End Date Tahmina Joe MD PCP - General Geriatric Medicine 07/29/24 documented as of this encounter
--- OUTSIDE RECORDS SUMMARY | 2025-06-27 06:28 | XMS_ITS | Encounter Summary ---
Author Organization [employer] Address [address] [place] [address] Care Team Providers Care Hand Cutter Name Role Phone Tahmina Joe MD Primary Care Provider [phone] Encounter Details Date Type Department Care Team (Late st Contact Info) Description 08/10/2024 Lab Requisition [facility] - Main Lab [address] [place] [address] Phil Sands MD [address] [place] [address] [address] [place], [address] Peripheral vascular disease, unspecified (CMS/HCC V24); Hyperlipidemia, unspecified Social History Tobacco Use Types Packs/Day Years [...] Associated Diagnosis Comments COMPLETE BLOOD COUNT Routine 08/11/2024 5:22 AM EST Peripheral vascular disease, unspecified (CMS/HCC) Hyperlipidemia, unspecified BASIC METABOLIC PANEL Routine 08/11/2024 5:22 AM EST Peripheral vascular disease, unspecified (CMS/HCC) Hyperlipidemia, unspecified documented in this encounter Results * (ABNORMAL) Basic metabolic panel (08/11/2024 5:22 AM EST) Sodium 131(L) 133 - 145 mmol/L LAB CHEMISTRY METHOD 08/11/2024 11:27 AM EST [facility] Potassium 4.2 3.5 - 5.5 mmol/L LAB CHEMISTRY METHOD 08/11/2024 11:27 AM [facility] Chloride 97 96 - 110 mmol/L LAB CHEMISTRY METHOD 08/11/2024 11:27 AM [facility] CO2 26 21 - 32 mmol/L LAB CHEMISTRY METHOD 08/11/2024 11:27 AM [facility] Anion Gap 8 3 - 11 LAB CHEMISTRY METHOD 08/11/2024 11:27 AM [facility] Glucose 81 70 - 100 mg/dL LAB CHEMISTRY METHOD 08/11/2024 11:27 AM [facility] BUN 14 5 - 25 mg/dL LAB CHEMISTRY METHOD 08/11/2024 11:27 AM [facility] Creatinine 0.71 0.70 - 1.30 mg/dL LAB CHEMISTRY METHOD 08/11/2024 11:27 AM [facility] eGFR 101 >=60 mL/min/1. 73m2 LAB CHEMISTRY METHOD 08/11/2024 11:27 AM [facility] Comment:Calculation based on the Chronic Kidney Disease Epidemiology Collaboration (CKD-EPI) equation refit without adjustment for race. BUN/Creatinine Ratio 19.7 LAB CHEMISTRY METHOD 08/11/2024 11:27 AM [facility] Calcium 8.7 8.5 - 10.5 mg/dL LAB CHEMISTRY METHOD 08/11/2024 11:27 AM [facility] Blood Venous blood specimen / Unknown Venipuncture / Unknown 08/11/2024 5:22 AM EST 08/11/2024 9:37 AM EST us Phil Sands MD LAB BLOOD ORDERABLES Final Resul t [facility] [address] [place] [address], [place] [phone] * (ABNORMAL) Complete blood count (08/11/2024 5:22 AM EST) WBC 8.1 4.8 - 10.8 K/mcL LAB HEMETOLOGY METHOD 08/11/2024 11:18 AM [facility] RBC 4.00(L) 4.50 - 5.50 M/mcL LAB HEMETOLOGY METHOD 08/11/2024 11:18 AM [facility] Hemoglobin 11.5(L) 13.5 - 17.5 g/dL LAB HEMETOLOGY METHOD 08/11/2024 11:18 AM [facility] Hematocrit 35.6(L) 42.0 - 54.0 % LAB HEMETOLOGY METHOD 08/11/2024 11:18 AM [facility] MCV 88.6 79.0 - 98.0 FL LAB HEMETOLOGY METHOD 08/11/2024 11:18 AM [facility] MCH 28.6 27.0 - 32.0 pcg LAB HEMETOLOGY METHOD 08/11/2024 11:18 AM [facility] MCHC 32.3 32.0 - 37.0 g/dL LAB HEMETOLOGY METHOD 08/11/2024 11:18 AM [facility] RDW 14.6 11.0 - 15.0 % LAB HEMETOLOGY METHOD 08/11/2024 11:18 AM [facility] Platelets 185 130 - 400 K/mcL LAB HEMETOLOGY METHOD 08/11/2024 11:18 AM [facility] MPV 11.9(H) 7.0 - 11.0 FL LAB HEMETOLOGY METHOD 08/11/2024 11:18 AM [facility] NRBC 0.0 <1.0 % LAB HEMETOLOGY METHOD 08/11/2024 11:18 AM [facility] NRBC Absolute 0.00 <0.10 K/mcL LAB HEMETOLOGY METHOD 08/11/2024 11:18 AM EST [facility] Blood Venous blood specimen / Unknown Venipuncture / Unknown 08/11/2024 5:22 AM EST 08/11/2024 9:37 AM EST us Phil Sands MD LAB BLOOD ORDERABLES Final Resul t [facility] ([facility]) [facility] [address] [place] [address], documented in this encounter Visit Diagnoses Diagnosis Peripheral vascular disease, unspecified (CMS/HCC V24) Peripheral vascular disease, unspecified Hyperlipidemia, unspecified documented in this encounter Care Teams Hand Cutter Relationship Specialty Start Date End Date Tahmina Joe MD PCP - General Geriatric Medicine 07/29/24 documented as of this encounter
--- OUTSIDE RECORDS SUMMARY | 2025-06-27 06:28 | XMS_ITS | Encounter Summary ---
Author Organization [facility] Address [address] [place] [address] Care Team Providers Care Section Gang Worker Name Role Phone Tahmina Joe MD Primary Care Provider [phone] Encounter Details Date Type Department Care Team (Late st Contact Info) Description 08/17/2024 Lab Requisition [facility] - Main Lab [address] [place] [address] Phil Sands MD [address] [place] [address] [address] [place], [address] Hyperlipidemia, unspecified; Peripheral vascular disease, unspecified [...] Associated Diagnosis Comments COMPLETE BLOOD COUNT Routine 08/18/2024 9:00 AM EST Hyperlipidemia, unspecified Peripheral vascular disease, unspecified (CMS/HCC) BASIC METABOLIC PANEL Routine 08/18/2024 9:00 AM EST Hyperlipidemia, unspecified Peripheral vascular disease, unspecified (CMS/HCC) documented in this encounter Results * (ABNORMAL) Basic metabolic panel (08/18/2024 9:00 AM EST) Sodium 132(L) 133 - 145 mmol/L LAB CHEMISTRY METHOD 08/18/2024 11:26 AM EST [facility] Potassium 4.4 3.5 - 5.5 mmol/L LAB CHEMISTRY METHOD 08/18/2024 11:26 AM [facility] Chloride 103 96 - 110 mmol/L LAB CHEMISTRY METHOD 08/18/2024 11:26 AM [facility] CO2 23 21 - 32 mmol/L LAB CHEMISTRY METHOD 08/18/2024 11:26 AM [facility] Anion Gap 6 3 - 11 LAB CHEMISTRY METHOD 08/18/2024 11:26 AM [facility] Glucose 106(H) 70 - 100 mg/dL LAB CHEMISTRY METHOD 08/18/2024 11:26 AM [facility] BUN 16 5 - 25 mg/dL LAB CHEMISTRY METHOD 08/18/2024 11:26 AM [facility] Creatinine 0.87 0.70 - 1.30 mg/dL LAB CHEMISTRY METHOD 08/18/2024 11:26 AM [facility] eGFR 95 >=60 mL/min/1. 73m2 LAB CHEMISTRY METHOD 08/18/2024 11:26 AM [facility] Comment:Calculation based on the Chronic Kidney Disease Epidemiology Collaboration (CKD-EPI) equation refit without adjustment for race. BUN/Creatinine Ratio 18.4 LAB CHEMISTRY METHOD 08/18/2024 11:26 AM [facility] Calcium 8.9 8.5 - 10.5 mg/dL LAB CHEMISTRY METHOD 08/18/2024 11:26 AM [facility] Blood Venous blood specimen / Unknown Venipuncture / Unknown 08/18/2024 9:00 AM EST 08/18/2024 10:55 AM EST us Phil Sands MD LAB BLOOD ORDERABLES Final Resul t [facility] [address] [place] [address], * (ABNORMAL) Complete blood count (08/18/2024 9:00 AM EST) WBC 8.5 4.8 - 10.8 K/mcL LAB HEMETOLOGY METHOD 08/18/2024 11:15 AM [facility] RBC 4.00(L) 4.50 - 5.50 M/mcL LAB HEMETOLOGY METHOD 08/18/2024 11:15 AM [facility] Hemoglobin 11.5(L) 13.5 - 17.5 g/dL LAB HEMETOLOGY METHOD 08/18/2024 11:15 AM [facility] Hematocrit 36.4(L) 42.0 - 54.0 % LAB HEMETOLOGY METHOD 08/18/2024 11:15 AM [facility] MCV 90.8 79.0 - 98.0 FL LAB HEMETOLOGY METHOD 08/18/2024 11:15 AM [facility] MCH 28.7 27.0 - 32.0 pcg LAB HEMETOLOGY METHOD 08/18/2024 11:15 AM [facility] MCHC 31.6(L) 32.0 - 37.0 g/dL LAB HEMETOLOGY METHOD 08/18/2024 11:15 AM [facility] RDW 14.5 11.0 - 15.0 % LAB HEMETOLOGY METHOD 08/18/2024 11:15 AM [facility] Platelets 303 130 - 400 K/mcL LAB HEMETOLOGY METHOD 08/18/2024 11:15 AM [facility] MPV 10.9 7.0 - 11.0 FL LAB HEMETOLOGY METHOD 08/18/2024 11:15 AM [facility] NRBC 0.0 <1.0 % LAB HEMETOLOGY METHOD 08/18/2024 11:15 AM [facility] NRBC Absolute 0.00 <0.10 K/mcL LAB HEMETOLOGY METHOD 08/18/2024 11:15 AM [facility] Blood Venous blood specimen / Unknown Venipuncture / Unknown 08/18/2024 9:00 AM EST 08/18/2024 10:55 AM EST us Phil Sands MD LAB BLOOD ORDERABLES Final Resul t [facility] [address] [place] [address], documented in this encounter Visit Diagnoses Diagnosis Hyperlipidemia, unspecified Peripheral vascular disease, unspecified (CMS/HCC V24) Peripheral vascular disease, unspecified documented in this encounter Care Teams Section Gang Worker Relationship Specialty Start Date End Date Tahmina Joe MD PCP - General Geriatric Medicine 07/29/24 documented as of this encounter
--- OUTSIDE RECORDS SUMMARY | 2025-06-27 06:28 | XMS_ITS | Encounter Summary ---
Author Organization [facility] Address [address] [place] [address] Care Team Providers Care Medical Radiation Therapist Name Role Phone Tahmina Joe MD Primary Care Provider Encounter Details Date Type Department Care Team (Late st Contact Info) Description 07/29/2024 Lab Requisition [facility] - Main Lab [address] [facility] [place] [address] Tahmina Joe MD [address] [place] [address] Vitamin D deficiency, unspecified; Gangrene, not elsewhere classified (CMS/HCC V24, CMS/HCC V28); Hyperlipidemia, unspecified; Sepsis, unspecified organism (CMS/HCC V24, CMS/HCC V28); Local infection of the skin and subcutaneous tissue, unspecified Social History Tobacco Use Types Packs/Day [...] Procedure Name Priority Date/Time Associated Diagnosis Comments LIPID PANEL WITH REFLEX TO DIRECT LDL Routine 07/29/2024 6:08 AM EST Vitamin D deficiency, unspecified Gangrene, not elsewhere classified (CMS/HCC) Hyperlipidemia, unspecified Sepsis, unspecified organism (CMS/HCC) Local infection of the skin and subcutaneous tissue, unspecified VITAMIN D 25 HYDROXY Routine 07/29/2024 6:08 AM EST Vitamin D deficiency, unspecified Gangrene, not elsewhere classified (CMS/HCC) Hyperlipidemia, unspecified Sepsis, unspecified organism (CMS/HCC) Local infection of the skin and subcutaneous tissue, unspecified COMPLETE BLOOD COUNT Routine 07/29/2024 6:08 AM EST Vitamin D deficiency, unspecified Gangrene, not elsewhere classified (CMS/HCC) Hyperlipidemia, unspecified Sepsis, unspecified organism (CMS/HCC) Local infection of the skin and subcutaneous tissue, unspecified HEMOGLOBIN A1C Routine 07/29/2024 6:08 AM EST Vitamin D deficiency, unspecified Gangrene, not elsewhere classified (CMS/HCC) Hyperlipidemia, unspecified Sepsis, unspecified organism (CMS/HCC) Local infection of the skin and subcutaneous tissue, unspecified FOLATE Routine 07/29/2024 6:08 AM EST Vitamin D deficiency, unspecified Gangrene, not elsewhere classified (CMS/HCC) Hyperlipidemia, unspecified Sepsis, unspecified organism (CMS/HCC) Local infection of the skin and subcutaneous tissue, unspecified VITAMIN B12 Routine 07/29/2024 6:08 AM EST Vitamin D deficiency, unspecified Gangrene, not elsewhere classified (CMS/HCC) Hyperlipidemia, unspecified Sepsis, unspecified organism (CMS/HCC) Local infection of the skin and subcutaneous tissue, unspecified COMPREHENSIVE METABOLIC PANEL Routine 07/29/2024 6:08 AM EST Vitamin D deficiency, unspecified Gangrene, not elsewhere classified (CMS/HCC) Hyperlipidemia, unspecified Sepsis, unspecified organism (CMS/HCC) Local infection of the skin and subcutaneous tissue, unspecified documented in this encounter Results * Hemoglobin A1c (07/29/2024 6:08 AM EST) Hemoglobin A1C 5.4 <6.5 % LAB CHEMISTRY METHOD 07/29/2024 2:20 PM EST [facility] Mean Bld Glu Estim. 108 mg/dL LAB CHEMISTRY METHOD 07/29/2024 2:20 PM EST [facility] Blood Venous blood specimen / Unknown Venipuncture / Unknown 07/29/2024 6:08 AM EST 07/29/2024 10:03 AM EST us Tahmina Joe MD LAB BLOOD ORDERABLES Final Resul t Performing Organization Address City/[facility]/ZIP Co de Phone Number [facility] [address] [place] [address], [place] [phone] * (ABNORMAL) Vitamin D 25 hydroxy (07/29/2024 6:08 AM EST) [facility] Vit D, 25-Hydroxy 12.7(L) 30.0 - 80.0 ng/mL LAB CHEMISTRY METHOD 07/29/2024 11:55 AM EST [facility] Blood Venous blood specimen / Unknown Venipuncture / Unknown 07/29/2024 6:08 AM EST 07/29/2024 10:03 AM EST us Tahmina Joe MD LAB BLOOD ORDERABLES Final Resul t Performing Organization Address [facility]/ZIP Co de Phone Number [facility] [address] [place] [address], [place] [phone] * Folate (07/29/2024 6:08 AM EST) [facility] Folate 9.1 2.8 - 17.0 ng/ml LAB CHEMISTRY METHOD 07/29/2024 12:12 PM EST [facility] Blood Venous blood specimen / Unknown Venipuncture / Unknown 07/29/2024 6:08 AM EST 07/29/2024 10:03 AM EST us Tahmina Joe MD LAB BLOOD ORDERABLES Final Resul t Performing Organization Address City/[facility]/ZIP Co de Phone Number [facility] [address] [place] [address], [place] [phone] * (ABNORMAL) Vitamin B12 (07/29/2024 6:08 AM EST) [facility] Vitamin B-12 185(L) 250 - 900 pcg/mL LAB CHEMISTRY METHOD 07/29/2024 12:16 PM [facility] Blood Venous blood specimen / Unknown Venipuncture / Unknown 07/29/2024 6:08 AM EST 07/29/2024 10:03 AM EST us Tahmina Joe MD LAB BLOOD ORDERABLES Final Resul t Performing Organization Address [facility]/ZIP Co de Phone Number [facility] [address] [place] [address], [place] [phone] * (ABNORMAL) Lipid panel with reflex to direct LDL (07/29/2024 6:08 AM EST) Cholesterol 160 0 - 200 mg/dL LAB CHEMISTRY METHOD 07/29/2024 12:12 PM [facility] Triglycerides 192(H) 0 - 150 mg/dL LAB CHEMISTRY METHOD 07/29/2024 12:12 PM [facility] HDL 30(L) >=40 mg/dL LAB CHEMISTRY METHOD 07/29/2024 12:12 PM [facility] LDL Calculated 92 0 - 100 mg/dL LAB CHEMISTRY METHOD 07/29/2024 12:12 PM [facility] VLDL Cholesterol Tanner 38.4 mg/dL LAB CHEMISTRY METHOD 07/29/2024 12:12 PM [facility] Non HDL Chol. (LDL+VLDL) 130 <145 mg/dL LAB CHEMISTRY METHOD 07/29/2024 12:12 PM [facility] Chol/HDL Ratio 5.3(H) 0.0 - 4.4 LAB CHEMISTRY METHOD 07/29/2024 12:12 PM [facility] Blood Venous blood specimen / Unknown Venipuncture / Unknown 07/29/2024 6:08 AM EST 07/29/2024 10:03 AM EST us Tahmina Joe MD LAB BLOOD ORDERABLES Final Resul t [facility] [address] [place] [address], * (ABNORMAL) Comprehensive metabolic panel (07/29/2024 6:08 AM EST) Sodium 131(L) 133 - 145 mmol/L LAB CHEMISTRY METHOD 07/29/2024 12:12 PM EST [facility] Potassium 4.6 3.5 - 5.5 mmol/L LAB CHEMISTRY METHOD 07/29/2024 12:12 PM [facility] Chloride 102 96 - 110 mmol/L LAB CHEMISTRY METHOD 07/29/2024 12:12 PM [facility] CO2 25 21 - 32 mmol/L LAB CHEMISTRY METHOD 07/29/2024 12:12 PM [facility] Anion Gap 4 3 - 11 LAB CHEMISTRY METHOD 07/29/2024 12:12 PM [facility] Glucose 83 70 - 100 mg/dL LAB CHEMISTRY METHOD 07/29/2024 12:12 PM [facility] BUN 25 5 - 25 mg/dL LAB CHEMISTRY METHOD 07/29/2024 12:12 PM [facility] Creatinine 0.97 0.70 - 1.30 mg/dL LAB CHEMISTRY METHOD 07/29/2024 12:12 PM [facility] eGFR 86 >=60 mL/min/1. 73m2 LAB CHEMISTRY METHOD 07/29/2024 12:12 PM [facility] Comment:Calculation based on the Chronic Kidney Disease Epidemiology Collaboration (CKD-EPI) equation refit without adjustment for race. BUN/Creatinine Ratio 25.8 LAB CHEMISTRY METHOD 07/29/2024 12:12 PM [facility] Calcium 8.8 8.5 - 10.5 mg/dL LAB CHEMISTRY METHOD 07/29/2024 12:12 PM [facility] AST (SGOT) 22 10 - 42 unit/L LAB CHEMISTRY METHOD 07/29/2024 12:12 PM [facility] ALT (SGPT) 28 10 - 60 unit/L LAB CHEMISTRY METHOD 07/29/2024 12:12 PM [facility] Alkaline Phosphatase 91 42 - 121 unit/L LAB CHEMISTRY METHOD 07/29/2024 12:12 PM [facility] Total Protein 8.1(H) 6.0 - 8.0 g/dL LAB CHEMISTRY METHOD 07/29/2024 12:12 PM [facility] Albumin 3.3 3.2 - 5.0 g/dL LAB CHEMISTRY METHOD 07/29/2024 12:12 PM [facility] Total Bilirubin 0.5 0.0 - 1.4 mg/dL LAB CHEMISTRY METHOD 07/29/2024 12:12 PM [facility] Blood Venous blood specimen / Unknown Venipuncture / Unknown 07/29/2024 6:08 AM EST 07/29/2024 10:03 AM EST us Tahmina Joe MD LAB BLOOD ORDERABLES Final Resul t [facility] [address] [place] [address], [place] [phone] * (ABNORMAL) Complete blood count (07/29/2024 6:08 AM EST) WBC 7.8 4.8 - 10.8 K/mcL LAB HEMETOLOGY METHOD 07/29/2024 11:17 AM [facility] RBC 3.90(L) 4.50 - 5.50 M/mcL LAB HEMETOLOGY METHOD 07/29/2024 11:17 AM [facility] Hemoglobin 11.0(L) 13.5 - 17.5 g/dL LAB HEMETOLOGY METHOD 07/29/2024 11:17 AM [facility] Hematocrit 35.7(L) 42.0 - 54.0 % LAB HEMETOLOGY METHOD 07/29/2024 11:17 AM [facility] MCV 92.7 79.0 - 98.0 FL LAB HEMETOLOGY METHOD 07/29/2024 11:17 AM [facility] MCH 28.6 27.0 - 32.0 pcg LAB HEMETOLOGY METHOD 07/29/2024 11:17 AM [facility] MCHC 30.8(L) 32.0 - 37.0 g/dL LAB HEMETOLOGY METHOD 07/29/2024 11:17 AM [facility] RDW 15.0 11.0 - 15.0 % LAB HEMETOLOGY METHOD 07/29/2024 11:17 AM [facility] Platelets 470(H) 130 - 400 K/mcL LAB HEMETOLOGY METHOD 07/29/2024 11:17 AM [facility] MPV 10.8 7.0 - 11.0 FL LAB HEMETOLOGY METHOD 07/29/2024 11:17 AM [facility] NRBC 0.0 <1.0 % LAB HEMETOLOGY METHOD 07/29/2024 11:17 AM [facility] NRBC Absolute 0.00 <0.10 K/mcL LAB HEMETOLOGY METHOD 07/29/2024 11:17 AM [facility] Blood Venous blood specimen / Unknown Venipuncture / Unknown 07/29/2024 6:08 AM EST 07/29/2024 10:03 AM EST us Tahmina Joe MD LAB BLOOD ORDERABLES Final Resul t [facility] [address] [place] [address], documented in this encounter Visit Diagnoses Diagnosis Vitamin D deficiency, unspecified Gangrene, not elsewhere classified (CMS/HCC V24, CMS/[facility] V28) Hyperlipidemia, unspecified Sepsis, unspecified organism ([facility] V24, [facility] V28) Local infection of the skin and subcutaneous tissue, unspecified documented in this encounter Care Teams Medical Radiation Therapist Relationship Specialty Start Date End Date Tahmina Joe MD PCP - General Geriatric Medicine 07/29/24 documented as of this encounter
--- OUTSIDE RECORDS SUMMARY | 2025-06-27 06:28 | XMS_ITS | Encounter Summary ---
Author Organization [email or web address] Address [address] [place] [address] Care Team Providers Care Summer Law Associate Name Role Phone Tahmina Joe MD Primary Care Provider [phone] Encounter Details Date Type Department Care Team (Late st Contact Info) Description 08/05/[address] [facility] - Main Lab [address] [place] [address] Phil Sands MD [address] [place] [address] [address] [place], [address] COVID-19 Social History Tobacco Use Types Packs/Day Years [...] Associated Diagnosis Comments COMPLETE BLOOD COUNT Routine 08/05/2024 5:32 AM EST COVID-19 COMPREHENSIVE METABOLIC PANEL Routine 08/05/2024 5:32 AM EST COVID-19 documented in this encounter Results * (ABNORMAL) Comprehensive metabolic panel (08/05/2024 5:32 AM EST) Sodium 129(L) 133 - 145 mmol/L LAB CHEMISTRY METHOD 08/05/2024 11:28 AM EST [facility] Potassium 4.2 3.5 - 5.5 mmol/L LAB CHEMISTRY METHOD 08/05/2024 11:28 AM EST [facility] Chloride 97 96 - 110 mmol/L LAB CHEMISTRY METHOD 08/05/2024 11:[address] [facility] CO2 23 21 - 32 mmol/L LAB CHEMISTRY METHOD 08/05/2024 11:[address] [facility] Anion Gap 9 3 - 11 LAB CHEMISTRY METHOD 08/05/2024 11:[address] [facility] Glucose 88 70 - 100 mg/dL LAB CHEMISTRY METHOD 08/05/2024 11:[address] [facility] BUN 20 5 - 25 mg/dL LAB CHEMISTRY METHOD 08/05/2024 11:[address] [facility] Creatinine 0.81 0.70 - 1.30 mg/dL LAB CHEMISTRY METHOD 08/05/2024 11:[address] [facility] eGFR 97 >=60 mL/min/1. 73m2 LAB CHEMISTRY METHOD 08/05/2024 11:[address] [facility] Comment:Calculation based on the Chronic Kidney Disease Epidemiology Collaboration (CKD-EPI) equation refit without adjustment for race. BUN/Creatinine Ratio 24.7 LAB CHEMISTRY METHOD 08/05/2024 11:[address] [facility] Calcium 8.3(L) 8.5 - 10.5 mg/dL LAB CHEMISTRY METHOD 08/05/2024 11:[address] [facility] AST (SGOT) 28 10 - 42 unit/L LAB CHEMISTRY METHOD 08/05/2024 11:[address] [facility] ALT (SGPT) 27 10 - 60 unit/L LAB CHEMISTRY METHOD 08/05/2024 11:[address] [facility] Alkaline Phosphatase 88 42 - 121 unit/L LAB CHEMISTRY METHOD 08/05/2024 11:[address] [facility] Total Protein 7.2 6.0 - 8.0 g/dL LAB CHEMISTRY METHOD 08/05/2024 11:[address] [facility] Albumin 3.1(L) 3.2 - 5.0 g/dL LAB CHEMISTRY METHOD 08/05/2024 11:[address] [facility] Total Bilirubin 0.4 0.0 - 1.4 mg/dL LAB CHEMISTRY METHOD 08/05/2024 11:[address] [facility] Blood Venous blood specimen / Unknown Venipuncture / Unknown 08/05/2024 5:32 AM EST 08/05/2024 9:44 AM EST us Phil Sands MD LAB BLOOD ORDERABLES Final Resul t [facility] [address] [place] [address], [place] [phone] * (ABNORMAL) Complete blood count (08/05/2024 5:32 AM EST) WBC 4.6(L) 4.8 - 10.8 K/mcL LAB HEMETOLOGY METHOD 08/05/2024 10:[address] [facility] RBC 3.70(L) 4.50 - 5.50 M/mcL LAB HEMETOLOGY METHOD 08/05/2024 10:[address] [facility] Hemoglobin 10.8(L) 13.5 - 17.5 g/dL LAB HEMETOLOGY METHOD 08/05/2024 10:[address] [facility] Hematocrit 33.0(L) 42.0 - 54.0 % LAB HEMETOLOGY METHOD 08/05/2024 10:[address] [facility] MCV 88.7 79.0 - 98.0 FL LAB HEMETOLOGY METHOD 08/05/2024 10:[address] [facility] MCH 29.0 27.0 - 32.0 pcg LAB HEMETOLOGY METHOD 08/05/2024 10:[address] [facility] MCHC 32.7 32.0 - 37.0 g/dL LAB HEMETOLOGY METHOD 08/05/2024 10:48 AM EST [facility] RDW 14.7 11.0 - 15.0 % LAB HEMETOLOGY METHOD 08/05/2024 10:48 AM EST [facility] Platelets 243 130 - 400 K/mcL LAB HEMETOLOGY METHOD 08/05/2024 10:[address] [facility] MPV 11.7(H) 7.0 - 11.0 FL LAB HEMETOLOGY METHOD 08/05/2024 10:48 AM EST [facility] NRBC 0.0 <1.0 % LAB HEMETOLOGY METHOD 08/05/2024 10:48 AM EST [facility] NRBC Absolute 0.00 <0.10 K/mcL LAB HEMETOLOGY METHOD 08/05/2024 10:[address] [facility] Blood Venous blood specimen / Unknown Venipuncture / Unknown 08/05/2024 5:32 AM EST 08/05/2024 9:44 AM EST us Phil Sands MD LAB BLOOD ORDERABLES Final Resul t [facility] [address] [place] [address], documented in this encounter Visit Diagnoses Diagnosis COVID-19 documented in this encounter Care Teams Summer Law Associate Relationship Specialty Start Date End Date Tahmina Joe MD PCP - General Geriatric Medicine 07/29/24 documented as of this encounter
[2025-06-27 07:15] VITALS: BP 176/65; PULSE 60; RESP 18; TEMP 36.6; O2SAT 94
--- NOTE | 2025-06-27 07:59 | PC.NURSE ---
Assumed care of patient at 0700. Patient aox4, states he fell on Thursday night d/t ETOH use that night and started having back pain Thursday. Denies head strike. Awaiting on lumbar xray. VSS.No needs at this time.
--- NOTE | 2025-06-27 08:07 | ED_ITS ---
HPI - Back Pain/Injury General Chief Complaint: Back Pain/Injury Stated Complaint: Back Pain Time Seen by Provider: 06/27/25 07:50 History of Present Illness ED Provider: Nohemi Jackson NP HPI Narrative: 70-year-old male medical history significant for hypertension, hyperlipidemia, gait instability baseline ambulatory with walker, daily alcohol use and dependence presents to the ED for evaluation reporting a mechanical fall that occurred about 2 days ago. Patient reports that he was drinking alcohol, believes he may have had too much to drink , and subsequently was walking to his bed in his home on a carpet with his rolling walker when it slid out from underneath him. Patient reports that he then landed on his bilateral knees, which are not hurting him. However, he did land on his abdomen, and reports having some lower back pain. No urinary complaints, no dysuria, hematuria, urgency or frequency. No chest pain or pressure, shortness of breath, difficulty with breathing. Patient reports that he did strike his head on the carpet, but did not lose consciousness. Denies midline neck pain. Related Data Previous Rx's ?Medication ?Instructions ?Recorded acetaminophen 500 mg tablet 1,000 mg (2 x 500 mg) PO Q 8H PRN 06/27/25 fever or pain 7 days #30 tabs lidocaine 5 % topical patch 1 patch topical DAILY 7 da ys #15 ea 06/27/25 (Lidoderm) methocarbamol 500 mg tablet 1,000 mg (2 x 500 mg) PO Q ID PRN 06/27/25 spasms 5 days #28 tabs oxycodone 5 mg tablet 5 mg PO Q8H PRN pain 5 days #10 06/27/25 tabs Allergies Allergy/AdvReac Type Severity Reaction Status Date / Time No Known Allergies Allergy Verified 06/27/25 05:23 Review of Systems Review of Systems: ROS is otherwise negative unless mentioned in HPI. [facility] Social History Social History Advance Directives: No Advance Directives Information Provided: Yes Physical Exam Exam: Exam: Nursing notes and vital signs reviewed. Constitutional: Well-appearing, NAD. Alert. Oriented X3. Eyes: EOMI. ENT: Pharynx normal. Neck: Normal inspection. Neck supple. CVS: Normal heart rate and rhythm. Pulses normal. Respiratory: No respiratory distress. Breath sounds normal. Abdomen: Soft, nontender, nondistended. No CVA tenderness bilaterally. Skin: Skin warm and dry. Normal skin color. Extremities: No lower extremity edema. Moves all extremities. Back: Tenderness to palpation of the bilateral lower back. Negative SLRT. Neuro: Oriented X 3. No motor deficit. Vital Signs: Vital Signs: Last Vital Signs Temp 98.2 F 06/27/25 10:47 Pulse 68 06/27/25 12:20 Resp 18 06/27/25 12:20 BP 164/81 H 06/27/25 12:20 Pulse Ox 97 06/27/25 12:20 O2 Del Method Room Air 06/27/25 12:20 BMI result Body Mass Index 31.7 Medications Administered Discontinued Medications Generic Name Dose Route Start Last Admin Trade Name Freq PRN Reason Stop Dose Admin Acetaminophen 975 mg 06/27/25 10:56 06/27/25 11:07 Acetaminophen 325 Mg Tablet PO 06/27/25 10:57 975 mg ONCE ONE Administration Lidocaine 1 patch 06/27/25 10:56 06/27/25 11:07 Lidocaine 4 % Patch Adh..Patch TRANSDERMA 06/27/25 10:57 1 patch ONCE ONE Administration Protocol Methocarbamol 750 mg 06/27/25 10:56 06/27/25 11:06 Methocarbamol 750 Mg Tablet PO 06/27/25 10:57 750 mg ONCE ONE Administration Oxycodone HCl 5 mg 06/27/25 10:56 06/27/25 11:06 Oxycodone Hcl Immed Release 5 Mg Tablet PO 06/27/25 10:57 5 mg ONCE ONE Administration Medical Decision Making Medical Decision Making MDM Narrative: This is a well-appearing 70-year-old male coming for evaluation of a fall. He has no tenderness to palpation of the midline lumbar spine, though does have discomfort to palpation of the bilateral sides of the lumbar spine. Straight leg raise test is negative bilaterally. Reports he did strike his head but did not lose consciousness. Otherwise abdominal exam is benign, alert and oriented, answering all questions appropriately. Denies urinary complaints. Plan for CT of the head, cervical spine, lumbar spine as well as urinalysis testing and reassessment. At home he has taken a marijuana gummie for sleep. Used 1x dose of Aleve with mild effect. 10:45 AM--CT show evidence of a suspected acute T12 fracture with 30% loss of height, and a suspected subacute fracture of the superior left sacrum. He has no neurological deficits. 2+ patellar DTRs. He is ambulatory with his walker. He reports sitting is the most uncomfortable. Plan to administer a dose of Robaxin, oxycodone, Tylenol, and a Lidoderm patch and reassess. He is ambulatory independently, does not want to go to rehab. 12:45 PM-- Urinalysis here shows no signs of infection. He is ambulatory in the hallway independently after pain meds. Reports feeling significantly better. P mirella to discharge home with Robaxin, oxycodone and Tylenol, pain patches. I offered him overnight stay for case management, PT evaluation however at this time he feels pain is well controlled and would like to proceed with discharge plan. There is no indication for admission. We will proceed with discharge. His friend is here to pick him up. Differential Diagnosis Differential Diagnoses: The differential diagnosis associated with the presentation includes lumbar sprain or strain, muscle ache, spinal compression fracture, hematuria, kidney injury, intracranial hemorrhage, cervical fracture/malalignment Admission/Observation Consideration of admission/observation: Escalation of care including admission/observation considered (Not indicated) Lab Data MDM Lab Attestation statement: I reviewed the patient's lab results. (Urinalysis with no signs of infection) Labs: Lab Results 06/27/25 Range/Units 12:22 Urine Color Dark Yellow Urine Appearance Clear Urine pH 7.5 (5.0-9.0) Ur Specific [place] 1.020 (1.005-1.025) Urine Protein 30 (1+) H (Neg-Trace) mg/dL Urine Glucose (UA) Negative (Negative) mg/dL Urine Ketones 15 (Negative) mg/dL Urine Blood Negative (Negative) Urine Nitrite Negative (Negative) Ur Leukocyte Esterase Trace H (Negative) Urine RBC 0-2 (0-2) /HPF Urine WBC 0-5 (0-5) /HPF Ur Squamous Epith Cells 0-2 (0-2) /HPF Urine Bacteria None Seen (None Seen) Hyaline Casts 0-2 (0-2) /LPF Independent Interpretation I performed an independent interpretation of an: Plain X-Ray and CT Scan Interpretation: I have reviewed the patient's imaging and agree with the radiologist's findings. Radiology Impression Discussion of test interpretation with radiology: I have reviewed the radiologist's reading. Radiologist Impression: XR Lumbar Spine Impression: 1. T12 anterior wedging compression fracture, age indeterminate. 2. Lower lumbar spine degenerative spondylosis. 3. Cholelithiasis versus bowel contents. CT/CT cervical spine wo IV con IMPRESSION: No acute fracture. 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 CT/CT head/brain wo IV con IMPRESSION: No evidence of intracranial hemorrhage. CT/CT lumbar spine wo IV con IMPRESSION: Suspected acute T12 fracture with 30% loss of height. Suspect a subacute fracture of the superior left sacrum.. Degenerative disc disease and facet osteoarthritis is most pronounced at L4-5 and L5-S1. External Record Review External record reviewed: Outside ED record Chronic Conditions Patient?s care impacted by: Hypertension and Other (HLD) Social Determinants Patient?s care significantly limited by Social Determinants of Health including: Alcoholism and drug addiction in family and Problems related to primary support group Discharge Plan Discharge Clinical Impression: Fall, Fracture of T12 vertebra, Fracture of sacrum Patient Disposition: Home, Self-Care Instructions: Fall Prevention for Older Adults (ED), Sacral Fracture (ED), Kyphoplasty (DC) Additional Instructions: As we discussed, you were seen in the ER today for evaluation after a mechanical fall. Your urine sample does not show any signs of infection. In the CT scan however I have your lumbar spine is concerning as there is a susp ected acute T12 fracture. There was also a suspected subacute fracture of the superior left sacrum. You have degenerative disc disease and facet osteoarthritis, which is most pronounced at L4-L5 and L5-S1. I recommend that you follow up outpatient with a spinal doctor, as I have listed on your paperwork for your convenience. For pain control, I have prescribed you lidocaine patches, I recommend [id number] oral Tylenol, I have also prescribed you muscle relaxers, Robaxin, and oxycodone. Is very important that you do not drink any alcohol while taking these medications. Please try to prevent falls at home. We offered you physical therapy/case management evaluation in the ER but you have declined. With any worsening complaints at any time, return back to the ED for additional assessment. Prescriptions: New acetaminophen 500 mg tablet 1,000 mg PO Q8H PRN (Reason: fever or pain) 7 Days Qty: 30 0RF methocarbamol 500 mg tablet 1,000 mg PO QID PRN (Reason: spasms) 5 Days Qty: 28 0RF lidocaine [Lidoderm] 5 % adhesive patch,medicated 1 patch topical DAILY 7 Days Qty: 15 0RF Rx Instructions: leave on most painful area for up to 12 hrs oxycodone 5 mg tablet 5 mg PO Q8H PRN (Reason: pain) 5 Days Qty: 10 0RF Rx Instructions: Partial Fill upon patient request. Referrals: Markie Ya MD, PhD [Physician, Neuro Spine] Print Language: Upper Sorbian
[2025-06-27 10:47] VITALS: BP 180/64; PULSE 60; RESP 18; TEMP 36.8; O2SAT 96
[2025-06-27] MEDS: oxyCODONE HCl Immed Release 5 MG TABLET PO (11:06)
[2025-06-27] MEDS: Lidocaine 4 % Patch ADH..PATCH 1 PATCH TRANSDERMA (11:07)
[2025-06-27 12:20] VITALS: BP 164/81; PULSE 68; RESP 18; O2SAT 97
[2025-06-27 12:30] LABS: Appearance Urine Clear; Glucose Urine UA Negative (Negative); PH 7.5 (5.0-9.0); Specific Gravity - Urine 1.020 (1.005-1.025); UMIC TRIGGER UACC YES
[2025-06-27 13:12] VITALS: BP 164/81; PULSE 68; RESP 18; TEMP 36.2; O2SAT 97
== END 2025-06-27 13:12 | disposition home or self-care (01) ==
PROVIDERS: Emergency Provider Emergency Medicine
DX: S22.080A Wedge compression fracture of T11-T12 vertebra, initial encounter for closed fracture (principal); S32.10XA Unspecified fracture of sacrum, initial encounter for closed fracture; S09.90XA Unspecified injury of head, initial encounter; W01.0XXA Fall on same level from slipping, tripping and stumbling without subsequent striking against object, initial encounter; Y93.9 Activity, unspecified; Y92.003 Bedroom of unspecified non-institutional (private) residence as the place of occurrence of the external cause
CPT/HCPCS: 70450; 72100; 72125; 72131; 81001; 99284

== ENCOUNTER → 2025-06-27 06:03 | Outpatient (BNV) | payer OTHER, SELFPAY | PROVIDERS: Emergency Provider Emergency Medicine; Visit Provider Radiology Diagnostic Radiology | DX: M50.022 Cervical disc disorder at C5-C6 level with myelopathy (principal); M51.369 Other intervertebral disc degeneration, lumbar region without mention of lumbar back pain or lower extremity pain; S22.080A Wedge compression fracture of T11-T12 vertebra, initial encounter for closed fracture; M47.816 Spondylosis without myelopathy or radiculopathy, lumbar region; Z04.3 Encounter for examination and observation following other accident | CPT/HCPCS: 70450; 72100; 72125; 72131 ==